=== PATIENT | male | born 1955 | race Asian ===

== ENCOUNTER 2020-05-24 19:03 | Observation (INO) ==
[2020-05-24 19:37] LABS: ABS Eosinophils 0.1 10^3/ul (0-0.6); ABS Lymphocytes 2.3 10^3/ul (1.0-4.8); ABS Monocytes 0.4 10^3/ul (0-0.8); ABS Neutrophils 2.1 10^3/ul (1.5-7.7); Eosinophil % 1.8 %; Hematocrit 41 % (42-52); Hemoglobin 14.1 g/dL (14.0-18.0); Lymphocyte % 46.9 %; Mean Corpuscular HGB Conc 34 g/dL (31-36); Mean Corpuscular Hemoglobin 32 pg (27-31); Mean Corpuscular Volume 95 fL (80-94); Mean Platelet Volume 6.8 fL (7.4-10.4); Nucleated Red Blood Cells % 0.1; Platelet Count 309 10^3/uL (150-450); Red Blood Count 4.34 10^6 /uL (4.18-5.48); Red Cell Distribution Width 13 % (10-15); White Blood Count 4.9 10^3/uL (3.5-10.8)
[2020-05-24 19:44] LABS: INR 1.1 (0.82-1.09)
[2020-05-24 20:17] LABS: Albumin 4.2 g/dL (3.2-5.2); Albumin/Globulin Ratio 1.6 (1-3); BUN/Creatinine Ratio 23.3 (8-20); Calcium 9.3 mg/dL (8.6-10.3); EGFR African American 103.1 (>60); EGFR Non-African American 85.2 (>60); Globulin 2.7 g/dL (2-4); Potassium 4.9 mmol/L (3.5-5.0); Total Bilirubin 0.3 mg/dL (0.2-1.0); Total Protein 6.9 g/dL (6.4-8.9)
[2020-05-25 09:20] LABS: Influenza A Molecular Negative (Negative); Influenza B Molecular Negative (Negative)
[2020-05-25 18:09] VITALS: BP 124/63
== END 2020-05-25 15:45 | disposition home or self-care (01) ==
LOC: ED 19:03 → INTOOBSV 05-25 01:56 → MEDTELE 05-25 01:56
PROVIDERS: ADMIT Internal Medicine; ATTEND Internal Medicine